=== PATIENT | female | born 1970 | race Caucasian/White ===

== ENCOUNTER 2017-03-05 18:47 | Emergency (ER) | payer SELFPAY ==
[~2017-03-05] VITALS: Ht 165.1 cm; Wt 70.9 kg
[~2017-03-05 18:47] MED LIST: INSLAN SQ; INSNOV SQ
[2017-03-05 19:07] LABS: GLUCOSE,POINT OF CARE 299 MG/DL (70-110)
[2017-03-05] MEDS ORDERED: INSULIN REGULAR, HUMAN 100 UNITS/ML SQ ONE (20:45)
[2017-03-05] MEDS ORDERED: IBUPROFEN 800 MG TABLET PO ONE (20:45)
[2017-03-05 21:42] LABS: GLUCOSE,POINT OF CARE 382 MG/DL (70-110)
[2017-03-05 22:27] LABS: GLUCOSE,POINT OF CARE 330 MG/DL (70-110)
[2017-03-05] MEDS ORDERED: INSULIN ASPART 100 UNITS/ML SQ ONE (22:30)
[2017-03-05 22:59] VITALS: BP 109/73
[2017-03-05 23:02] LABS: GLUCOSE,POINT OF CARE 239 MG/DL (70-110)
== END 2017-03-05 23:00 | disposition home or self-care (01) ==
LOC: EMS 18:49
DX: S63.613A Unspecified sprain of left middle finger, initial encounter (principal); S60.032A Contusion of left middle finger without damage to nail, initial encounter; E11.9 Type 2 diabetes mellitus without complications; E78.00 Pure hypercholesterolemia, unspecified; E03.9 Hypothyroidism, unspecified; X58.XXXA Exposure to other specified factors, initial encounter; Y93.89 Activity, other specified; Y92.9 Unspecified place or not applicable; Y99.9 Unspecified external cause status
CPT/HCPCS: 29130; 73140; 82962; 96372; 99284; J1815 ×2; 99285

== ENCOUNTER 2017-12-28 08:27 | Emergency (ER) | payer OTHER ==
[~2017-12-28] VITALS: Ht 167.6 cm; Wt 153.0 kg
[2017-12-28 08:41] LABS: GLUCOSE,POINT OF CARE 201 MG/DL (70-110)
[2017-12-28] MEDS ORDERED: LEVO75 PO (08:42)
[2017-12-28] MEDS ORDERED: ATOR40TA28 PO (08:42)
[2017-12-28 09:42] LABS: APPEARANCE,URINE TURBID (CLEAR); GLUCOSE, URINE (UA) NEGATIVE (NEGATIVE); KETONES,URINE 15 mg/dL (NEGATIVE); LEUKOCYTE ESTERASE ,URINE MODERATE (NEGATIVE); NITRATE,URINE POSITIVE (NEGATIVE); OCCULT BLOOD,URINE LARGE (NEGATIVE); PROTEIN,URINE SEE CONFIRM (NEGATIVE)
[2017-12-28 10:04] LABS: BILIRUBIN,URINE PRELIM. POSITIVE (NEGATIVE)
[2017-12-28 10:06] LABS: RBC,URINE 51-100 /HPF (0-2); SULFOSALICYLIC ACID,URINE 3+ (Negative)
[2017-12-28 10:07] LABS: BACTERIA,URINE Many /HPF (None Seen); SQUAMOUS EPITHELIAL CELL,UR Moderate /LPF (None Seen)
[2017-12-28 10:27] VITALS: BP 122/87
== END 2017-12-28 11:20 | disposition home or self-care (01) ==
LOC: EMS 08:28
DX: N39.0 Urinary tract infection, site not specified (principal); E11.9 Type 2 diabetes mellitus without complications; E78.00 Pure hypercholesterolemia, unspecified; E03.9 Hypothyroidism, unspecified; G43.909 Migraine, unspecified, not intractable, without status migrainosus; Z79.4 Long term (current) use of insulin
CPT/HCPCS: 82962; 87086; 99284

== ENCOUNTER 2018-05-25 19:11 | Emergency (ER) | payer OTHER ==
[~2018-05-25] VITALS: Ht 167.6 cm; Wt 72.3 kg
[~2018-05-25 19:11] MED LIST changes: +ATOR40TA28 PO; +LEVO75 PO
[2018-05-25 19:59] LABS: GLUCOSE,POINT OF CARE 295 MG/DL (70-110)
[2018-05-25] MEDS ORDERED: METHOCARBAMOL 500 MG TABLET PO ONE (20:45)
[2018-05-25] MEDS ORDERED: IBUPROFEN 600 MG TABLET PO ONE (20:45)
[2018-05-25 22:04] VITALS: BP 115/81
== END 2018-05-25 22:05 | disposition home or self-care (01) ==
LOC: EMS 19:12
DX: M54.6 Pain in thoracic spine (principal); I10 Essential (primary) hypertension; E11.9 Type 2 diabetes mellitus without complications; E78.00 Pure hypercholesterolemia, unspecified; E03.9 Hypothyroidism, unspecified; Z79.4 Long term (current) use of insulin; V43.52XA Car driver injured in collision with other type car in traffic accident, initial encounter; Y93.89 Activity, other specified; Y92.481 Parking lot as the place of occurrence of the external cause; Y99.8 Other external cause status
CPT/HCPCS: 72072; 99284

== ENCOUNTER 2019-07-13 21:34 | Emergency (ER) | payer OTHER ==
[~2019-07-13] VITALS: Ht 167.6 cm; Wt 72.7 kg
[~2019-07-13 21:34] MED LIST changes: +INSU100V SQ
[2019-07-13] MEDS ORDERED: SODIUM CHLORIDE 0.9% 1,000 ML IV ONE (22:45)
[2019-07-13 23:01] LABS: BASOPHILS % (AUTO) 0.7 % (0.0-2.0); EOSINOPHILS % (AUTO) 6.4 % (1.0-6.0); HEMATOCRIT 32.7 % (36-46); HEMOGLOBIN 11.2 g/dL (12.0-16.0); LYMPHOCYTES # (AUTO) 2.5 K/uL (1.0-4.8); LYMPHOCYTES % (AUTO) 32.9 % (22.0-44.0); MEAN CORPUSCULAR HEMOGLOBIN 28.8 pg (26.0-34.0); MEAN CORPUSCULAR HGB CONC 34.2 G/dL (31.0-37.0); MEAN CORPUSCULAR VOLUME 84 fL (80-100); MONOCYTES # (AUTO) 0.5 K/uL (0.1-1.0); MONOCYTES % (AUTO) 7.2 % (2.0-9.0); NEUTROPHILS # (AUTO) 3.9 K/uL (1.8-7.7); NEUTROPHILS % (AUTO) 52.8 % (40.0-70.0); PLATELET COUNT (AUTO) 222 K/uL (150-450); RED BLOOD CELL COUNT(AUTO) 3.88 MIL/uL (4.00-5.20); RED CELL DISTRIBUTION WIDTH 13.5 % (11.5-14.5)
[2019-07-13 23:01] LABS: APPEARANCE,URINE CLOUDY (CLEAR); BILIRUBIN,URINE NEGATIVE (NEGATIVE); GLUCOSE, URINE (UA) >=1000 mg/dL (NEGATIVE); KETONES,URINE NEGATIVE (NEGATIVE); LEUKOCYTE ESTERASE ,URINE NEGATIVE (NEGATIVE); NITRATE,URINE NEGATIVE (NEGATIVE); OCCULT BLOOD,URINE NEGATIVE (NEGATIVE); PROTEIN,URINE TRACE (NEGATIVE); UROBILINOGEN,URINE 0.2 mg/dL (<=1.0)
[2019-07-13 23:10] LABS: BACTERIA,URINE Few /HPF (None Seen); RBC,URINE 0-2 /HPF (0-2); SQUAMOUS EPITHELIAL CELL,UR Few /LPF (None Seen)
[2019-07-13 23:35] LABS: ALBUMIN 3.4 g/dL (3.4-5.0); BILIRUBIN,TOTAL 0.3 mg/dL (0.1-1.0); CALCIUM, TOTAL 8.7 mg/dL (8.8-10.5); CREATININE 1.97 mg/dL (0.60-1.30); MAGNESIUM 2.2 mg/dL (1.80-2.40); POTASSIUM 4.8 mmol/L (3.5-5.1)
[2019-07-14] MEDS ORDERED: INSULIN REGULAR, HUMAN 100 UNITS/ML IVP ONE (00:15)
[2019-07-14 01:16] LABS: GLUCOSE,POINT OF CARE 157 MG/DL (70-110)
[2019-07-14 01:44] VITALS: BP 125/57
== END 2019-07-14 03:13 | disposition home or self-care (01) ==
LOC: EMS 21:34
DX: K59.00 Constipation, unspecified (principal); E11.65 Type 2 diabetes mellitus with hyperglycemia; N17.9 Acute kidney failure, unspecified; E78.00 Pure hypercholesterolemia, unspecified; E03.9 Hypothyroidism, unspecified; Z98.49 Cataract extraction status, unspecified eye; Z79.4 Long term (current) use of insulin; Z79.899 Other long term (current) drug therapy
CPT/HCPCS: 36415; 71046; 74176; 80053; 81001; 82962 ×2; 83605; 83735; 84484; 85025; 85610; 87077; 87086; 87186; 93005; 96361; 96374; 99285; J1815; J7030

== ENCOUNTER 2019-09-20 15:07 | Emergency (ER) | payer MEDICAID ==
[~2019-09-20] VITALS: Ht 167.6 cm; Wt 65.5 kg
[2019-09-20] MEDS ORDERED: SODIUM CHLORIDE 0.9% 1,000 ML IV ONE ×2 (15:45→17:15)
[2019-09-20] MEDS ORDERED: METOCLOPRAMIDE HCL 5 MG/ML 2 ML VIAL IVP ONE (15:45)
[2019-09-20] MEDS ORDERED: ACETAMINOPHEN 500 MG TABLET PO ONE (15:45)
[2019-09-20] MEDS ORDERED: DiphenhydrAMINE HCL 50 MG/ML VIAL IVP STA (15:45)
[2019-09-20 16:13] LABS: BASOPHILS % (AUTO) 0.9 % (0.0-2.0); EOSINOPHILS % (AUTO) 4.7 % (1.0-6.0); HEMATOCRIT 35.9 % (36-46); HEMOGLOBIN 12.3 g/dL (12.0-16.0); LYMPHOCYTES # (AUTO) 1.9 K/uL (1.0-4.8); LYMPHOCYTES % (AUTO) 25.6 % (22.0-44.0); MEAN CORPUSCULAR HGB CONC 34.3 G/dL (31.0-37.0); MEAN CORPUSCULAR VOLUME 85 fL (80-100); MONOCYTES # (AUTO) 0.4 K/uL (0.1-1.0); MONOCYTES % (AUTO) 5.5 % (2.0-9.0); NEUTROPHILS # (AUTO) 4.8 K/uL (1.8-7.7); NEUTROPHILS % (AUTO) 63.3 % (40.0-70.0); PLATELET COUNT (AUTO) 197 K/uL (150-450); RED BLOOD CELL COUNT(AUTO) 4.25 MIL/uL (4.00-5.20); RED CELL DISTRIBUTION WIDTH 13.3 % (11.5-14.5)
[2019-09-20 16:47] LABS: ALBUMIN 3.8 g/dL (3.4-5.0); BILIRUBIN,TOTAL 0.3 mg/dL (0.1-1.0); CREATININE 1.89 mg/dL (0.60-1.30); POTASSIUM 4.3 mmol/L (3.5-5.1); THYROID STIMULATING HORMONE 16.4 uIU/mL (0.36-3.74); TOTAL PROTEIN, SERUM 7.7 g/dL (6.4-8.2)
[2019-09-20 16:57] LABS: APPEARANCE,URINE CLOUDY (CLEAR); BILIRUBIN,URINE NEGATIVE (NEGATIVE); GLUCOSE, URINE (UA) >=1000 mg/dL (NEGATIVE); KETONES,URINE NEGATIVE (NEGATIVE); LEUKOCYTE ESTERASE ,URINE NEGATIVE (NEGATIVE); NITRATE,URINE NEGATIVE (NEGATIVE); OCCULT BLOOD,URINE TRACE (NEGATIVE); PROTEIN,URINE SEE CONFIRM (NEGATIVE); UROBILINOGEN,URINE 0.2 mg/dL (<=1.0)
[2019-09-20] MEDS ORDERED: INSULIN REGULAR, HUMAN 100 UNITS/ML IVP ONE (17:15)
[2019-09-20 17:28] LABS: BACTERIA,URINE Moderate /HPF (None Seen); RBC,URINE 0-2 /HPF (0-2); SQUAMOUS EPITHELIAL CELL,UR Few /LPF (None Seen); SULFOSALICYLIC ACID,URINE Trace (Negative)
[2019-09-20] MEDS ORDERED: HydrALAZINE HCL 20 MG/ML VIAL IVP ONE (18:00)
[2019-09-20 18:50] LABS: GLUCOSE,POINT OF CARE 258 MG/DL (70-110)
[2019-09-20 19:30] VITALS: BP 145/86
[2019-09-20 19:39] LABS: FREE T4 (FREE THYROXINE) 1.1 ng/dL (0.76-1.46)
== END 2019-09-20 19:53 | disposition home or self-care (01) ==
LOC: EMS 15:11
DX: G43.909 Migraine, unspecified, not intractable, without status migrainosus (principal); E11.65 Type 2 diabetes mellitus with hyperglycemia; E11.22 Type 2 diabetes mellitus with diabetic chronic kidney disease; N18.9 Chronic kidney disease, unspecified; R94.6 Abnormal results of thyroid function studies; R03.0 Elevated blood-pressure reading, without diagnosis of hypertension; E78.00 Pure hypercholesterolemia, unspecified; Z79.4 Long term (current) use of insulin
CPT/HCPCS: 36415; 80053; 81001; 82962; 84439; 84443; 84702; 85025; 87086; 96361; 96374; 96375; 99285; J0360; J1200; J1815; J2765; J7030

== ENCOUNTER 2020-10-12 08:07 | Emergency (ER) | payer MEDICAID, OTHER ==
[~2020-10-12] VITALS: Ht 167.6 cm; Wt 75.0 kg
[2020-10-12] MEDS ORDERED: ACETAMINOPHEN 325 MG TABLET PO ONE (10:00)
[2020-10-12 10:54] VITALS: BP 145/81
== END 2020-10-12 10:55 | disposition home or self-care (01) ==
LOC: EMS 08:10
DX: S63.502A Unspecified sprain of left wrist, initial encounter (principal); W19.XXXA Unspecified fall, initial encounter; Y93.89 Activity, other specified; Y92.89 Other specified places as the place of occurrence of the external cause; Y99.8 Other external cause status

== ENCOUNTER 2021-03-28 18:28 | Inpatient (IN) | payer MEDICAID, OTHER ==
[~2021-03-28] VITALS: Ht 165.1 cm; Wt 76.8 kg
[2021-03-28 20:08] LABS: BASOPHILS % (AUTO) 0.7 % (0.0-2.0); HEMATOCRIT 35.6 % (36-46); HEMOGLOBIN 12.1 g/dL (12.0-16.0); LYMPHOCYTES # (AUTO) 3.6 K/uL (1.0-4.8); LYMPHOCYTES % (AUTO) 36.2 % (22.0-44.0); MEAN CORPUSCULAR HGB CONC 33.9 G/dL (31.0-37.0); MEAN CORPUSCULAR VOLUME 83 fL (80-100); MONOCYTES # (AUTO) 0.7 K/uL (0.1-1.0); MONOCYTES % (AUTO) 7.6 % (2.0-9.0); NEUTROPHILS # (AUTO) 5.3 K/uL (1.8-7.7); NEUTROPHILS % (AUTO) 53.5 % (40.0-70.0); PLATELET COUNT (AUTO) 258 K/uL (150-450); RED BLOOD CELL COUNT(AUTO) 4.31 MIL/uL (4.00-5.20); RED CELL DISTRIBUTION WIDTH 13.5 % (11.5-14.5)
[2021-03-28 20:19] LABS: CALCIUM, TOTAL 9.1 mg/dL (8.8-10.5); CREATININE 3.14 mg/dL (0.60-1.30); POTASSIUM 3.3 mmol/L (3.5-5.1)
[2021-03-28 20:31] LABS: PROTHROMBIN TIME 10.7 SEC (9.4-11.6)
[2021-03-28 20:47] LABS: ALBUMIN 3.6 g/dL (3.4-5.0); BILIRUBIN,TOTAL 0.5 mg/dL (0.1-1.0); TOTAL PROTEIN, SERUM 7.7 g/dL (6.4-8.2)
[2021-03-28] MEDS ORDERED: SODIUM CHLORIDE 0.9% 1,000 ML IV ONE (21:00)
[2021-03-28] MEDS ORDERED: ONDANSETRON HCL 4 MG/2 ML VIAL IVP PRN (22:00)
[2021-03-28] MEDS ORDERED: POTASSIUM CHLORIDE 10 MEQ ER TABLET PO ONE (22:00)
[2021-03-28] MEDS ORDERED: DEXTROSE 50%-WATER 25 GM/50 ML SYRINGE IVP PRN (22:00)
[2021-03-28] MEDS ORDERED: ACETAMINOPHEN 325 MG TABLET PO PRN (22:00)
[2021-03-28 22:07] LABS: THYROID STIMULATING HORMONE 11.71 uIU/mL (0.36-3.74)
[2021-03-28] MEDS: INSULIN GLARGINE,HUM.REC.ANLOG 100 UNITS/ML SQ SCH (22:39)
[2021-03-28] MEDS: ASPIRIN 81 MG CHEWABLE TABLET PO SCH (22:39)
[2021-03-28 22:52] LABS: CREATININE,URINE RANDOM 74.4 mg/dL (30.0-125.0)
[2021-03-28 22:53] LABS: APPEARANCE,URINE CLOUDY (CLEAR); BILIRUBIN,URINE NEGATIVE (NEGATIVE); GLUCOSE, URINE (UA) 100 mg/dL (NEGATIVE); KETONES,URINE NEGATIVE (NEGATIVE); LEUKOCYTE ESTERASE ,URINE MODERATE (NEGATIVE); NITRATE,URINE POSITIVE (NEGATIVE); OCCULT BLOOD,URINE MODERATE (NEGATIVE); PROTEIN,URINE SEE CONFIRM (NEGATIVE); UROBILINOGEN,URINE 0.2 mg/dL (<=1.0)
[2021-03-28 23:05] LABS: AMPHET/METH SCREEN,URINE NEGATIVE (NEGATIVE); BARBITURATE SCREEN, URINE NEGATIVE (NEGATIVE); BENZODIAZEPINES SCREEN,URINE NEGATIVE (NEGATIVE); CANNABINOID SCREEN,URINE NEGATIVE (NEGATIVE); COCAINE SCREEN,URINE NEGATIVE (NEGATIVE); METHADONE SCREEN, URINE NEGATIVE (NEGATIVE); OPIATE SCREEN,URINE NEGATIVE (NEGATIVE)
[2021-03-28 23:06] LABS: PHENCYCLIDINE SCREEN,URINE NEGATIVE (NEGATIVE)
[2021-03-28 23:19] LABS: SULFOSALICYLIC ACID,URINE 4+ (Negative)
[2021-03-28 23:21] LABS: BACTERIA,URINE Many /HPF (None Seen); SQUAMOUS EPITHELIAL CELL,UR Few /LPF (None Seen)
[2021-03-28 23:26] LABS: COVID AG,FIA SOURCE NASOPHARYNGEAL
[2021-03-28 23:30] LABS: RBC,URINE 0-2 /HPF (0-2)
[2021-03-28 23:57] VITALS: BP 159/97
[2021-03-29] MEDS ORDERED: SODIUM CHLORIDE 0.9% 250 ML IV ONE (04:15)
[2021-03-29] MEDS: CeFAZolin 1 GM/DEXTROSE 50 ML IV SCH ×2 (04:20→15:20)
[2021-03-29] MEDS ORDERED: PNEUMOCOCCAL VACCINE POLYVALENT 0.5 ML VIAL [PPSV23] IM. ONE (05:00)
[2021-03-29 05:11] VITALS: BP 102/58
[2021-03-29] MEDS ORDERED: LEVOTHYROXINE SODIUM 125 MCG TABLET PO SCH (06:30)
[2021-03-29] MEDS: ATORVASTATIN CALCIUM 40 MG TABLET PO SCH (08:01)
[2021-03-29] MEDS: ASPIRIN 81 MG CHEWABLE TABLET PO SCH (08:01)
[2021-03-29] MEDS: HEPARIN SODIUM,PORCINE 5,000 UNITS/ML VIAL SQ SCH ×3 (08:02→15:21)
[2021-03-29 08:53] VITALS: BP 127/81
[2021-03-29 09:21] LABS: FREE T4 (FREE THYROXINE) 1.41 ng/dL (0.76-1.46)
[2021-03-29] MEDS ORDERED: LEVOTHYROXINE SODIUM 25 MCG TABLET PO ONE (10:30)
[2021-03-29 11:24] LABS: GLUCOMETER DEV NAME(LOC) 5S.1; GLUCOSE,POINT OF CARE 214 MG/DL (70-110)
[2021-03-29] MEDS: INSULIN LISPRO 100 UNITS/ML SQ PRN ×3 (11:37→21:48)
[2021-03-29 11:53] VITALS: BP 145/88
[2021-03-29 12:10] LABS: CALCIUM, TOTAL 8.3 mg/dL (8.8-10.5); CREATININE 2.64 mg/dL (0.60-1.30); POTASSIUM 4.2 mmol/L (3.5-5.1)
[2021-03-29 16:04] VITALS: BP 150/93
[2021-03-29 16:34] LABS: PROTEIN,URINE RANDOM 93 mg/dL (0-11.9); UREA NITROGEN,URINE RANDOM 322 mg/dL (350-1000)
[2021-03-29 17:31] LABS: GLUCOMETER DEV NAME(LOC) 5S.1; GLUCOSE,POINT OF CARE 165 MG/DL (70-110)
[2021-03-29 19:05] VITALS: BP 132/93
[2021-03-29] MEDS: INSULIN GLARGINE,HUM.REC.ANLOG 100 UNITS/ML SQ SCH (21:48)
[2021-03-29 23:45] VITALS: BP 116/76
[2021-03-30] MEDS: HEPARIN SODIUM,PORCINE 5,000 UNITS/ML VIAL SQ SCH ×3 (00:26→16:53)
[2021-03-30] MEDS: CeFAZolin 1 GM/DEXTROSE 50 ML IV SCH ×2 (03:14→16:52)
[2021-03-30 04:30] VITALS: BP 121/64
[2021-03-30 05:41] LABS: GLUCOMETER DEV NAME(LOC) 5S.1; GLUCOSE,POINT OF CARE 197 MG/DL (70-110)
[2021-03-30] MEDS: INSULIN LISPRO 100 UNITS/ML SQ PRN ×2 (05:53→13:10)
[2021-03-30] MEDS ORDERED: LEVOTHYROXINE SODIUM 150 MCG TABLET PO SCH (06:30)
[2021-03-30 07:26] LABS: BASOPHILS % (AUTO) 0.4 % (0.0-2.0); EOSINOPHILS % (AUTO) 5.2 % (1.0-6.0); HEMATOCRIT 29.5 % (36-46); HEMOGLOBIN 10.2 g/dL (12.0-16.0); LYMPHOCYTES # (AUTO) 2.8 K/uL (1.0-4.8); LYMPHOCYTES % (AUTO) 31.2 % (22.0-44.0); MEAN CORPUSCULAR HEMOGLOBIN 28.6 pg (26.0-34.0); MEAN CORPUSCULAR HGB CONC 34.4 G/dL (31.0-37.0); MEAN CORPUSCULAR VOLUME 83 fL (80-100); MONOCYTES # (AUTO) 0.7 K/uL (0.1-1.0); MONOCYTES % (AUTO) 7.7 % (2.0-9.0); NEUTROPHILS % (AUTO) 55.5 % (40.0-70.0); PLATELET COUNT (AUTO) 221 K/uL (150-450); RED BLOOD CELL COUNT(AUTO) 3.56 MIL/uL (4.00-5.20); RED CELL DISTRIBUTION WIDTH 13.5 % (11.5-14.5)
[2021-03-30 07:45] VITALS: BP 178/99
[2021-03-30 08:16] LABS: CALCIUM, TOTAL 8.4 mg/dL (8.8-10.5); CREATININE 2.5 mg/dL (0.60-1.30); MAGNESIUM 2.4 mg/dL (1.80-2.40); PHOSPHORUS 4.9 mg/dL (2.5-4.9); POTASSIUM 3.8 mmol/L (3.5-5.1)
[2021-03-30] MEDS: ATORVASTATIN CALCIUM 40 MG TABLET PO SCH (08:44)
[2021-03-30] MEDS: ASPIRIN 81 MG CHEWABLE TABLET PO SCH (08:44)
[2021-03-30] MEDS ORDERED: AmLODIPine BESYLATE 10 MG TABLET PO SCH (09:00)
[2021-03-30 10:00] VITALS: BP 135/85
[2021-03-30 12:03] VITALS: BP 141/73
[2021-03-30 15:48] VITALS: BP 137/85
[2021-03-30] MEDS ORDERED: AMLO-258 PO (16:19)
[2021-03-30] MEDS ORDERED: INSLAN SQ (16:19)
[2021-03-30] MEDS ORDERED: LEVO150 PO (16:19)
[2021-03-30] MEDS ORDERED: ASPI-1198 PO (16:19)
[2021-03-30] MEDS ORDERED: CEPH500C3 PO (16:23)
[2021-03-31 02:31] LABS: GLUCOMETER DEV NAME(LOC) 5S.2B; GLUCOSE,POINT OF CARE 117 MG/DL (70-110)
[2021-03-31 04:53] LABS: GLUCOMETER DEV NAME(LOC) 5S.1; GLUCOSE,POINT OF CARE 235 MG/DL (70-110)
[2021-03-31 06:07] LABS: GLUCOMETER DEV NAME(LOC) 5N.1C; GLUCOSE,POINT OF CARE 154 MG/DL (70-110)
== END 2021-03-30 18:30 | disposition home or self-care (01) | DRG 463 ==
LOC: EMS 18:28 → 5S 22:03
PROVIDERS: ADMIT Internal Medicine; ATTEND Internal Medicine
DX: N39.0 Urinary tract infection, site not specified (principal); G93.49 Other encephalopathy; N17.9 Acute kidney failure, unspecified; E11.21 Type 2 diabetes mellitus with diabetic nephropathy; N18.4 Chronic kidney disease, stage 4 (severe); E11.65 Type 2 diabetes mellitus with hyperglycemia; E11.22 Type 2 diabetes mellitus with diabetic chronic kidney disease; E87.1 Hypo-osmolality and hyponatremia; E78.5 Hyperlipidemia, unspecified; E03.9 Hypothyroidism, unspecified; Z79.4 Long term (current) use of insulin; R47.81 Slurred speech; E78.00 Pure hypercholesterolemia, unspecified; I12.9 Hypertensive chronic kidney disease with stage 1 through stage 4 chronic kidney disease, or unspecified chronic kidney disease; E87.6 Hypokalemia; R79.89 Other specified abnormal findings of blood chemistry; N92.0 Excessive and frequent menstruation with regular cycle; Z20.822 Contact with and (suspected) exposure to COVID-19
CPT/HCPCS: 70450; 70551; 71045; 76770; 80048; 80053; 81001; 81002; 82550; 82570; 82962; 83540; 83550; 83605; 83735; 83880; 83930; 83935; 84100; 84156; 84300; 84439; 84443; 84484; 84540; 85025; 85610; 85730; 87040; 87077; 87086; 87186; 93005; 93306; 99285; J0690; J1644; J1815; J7050; 36415-L1; 36415-TC